=== PATIENT | male | born 1990 | race Caucasian/White ===

== ENCOUNTER 2017-06-21 21:03 | Emergency (ER) | payer OTHER ==
[~2017-06-21] VITALS: Ht 162.6 cm; Wt 68.0 kg
[2017-06-21] MEDS: IBUPROFEN 800 MG TABLET PO ONE (21:48)
[2017-06-21] MEDS ORDERED: IBUPROFEN 800 MG TABLET ONE (22:05)
--- NOTE | 2017-06-21 23:28 | NUR ---
Patient discharged to home in stable conditon. Written and verbal after care instructions given. Patient verbalizes understanding of instructions.
== END 2017-06-21 23:36 | disposition home or self-care (01) ==
LOC: ER 21:05
DX: S16.1XXA Strain of muscle, fascia and tendon at neck level, initial encounter (principal); F17.200 Nicotine dependence, unspecified, uncomplicated; V89.2XXA Person injured in unspecified motor-vehicle accident, traffic, initial encounter; Y93.89 Activity, other specified; Y92.89 Other specified places as the place of occurrence of the external cause; Y99.8 Other external cause status
CPT/HCPCS: 72125; A4663